=== PATIENT | male | born 1960 | race Caucasian/White ===

== ENCOUNTER 2021-02-04 20:12 | Emergency (ER) | payer BC ==
[~2021-02-04] VITALS: Ht 170.2 cm; Wt 68.2 kg
[2021-02-04 20:12] VITALS: TEMP 97.2
[2021-02-04 21:21] LABS: HEMATOCRIT 40.2 % (42.0-52.0); HEMOGLOBIN 14.3 g/dl (13.5-18.0); MEAN CELL VOLUME 94 fl (80.0-100.0); MEAN CORPUSCULAR HEMOGLOBIN 33 pg (27.0-31.0); MEAN CORPUSCULAR HGB CONC 36 g/dl (33.0-37.0); PLATELET COUNT 612 K/mm3 (130-400); REDCELL DISTRIBUTION WIDTH-CV 14.2 % (11.5-14.5)
[2021-02-04 21:44] LABS: ALANINE AMINOTRANSFERASE 33 U/L (4-49); ALBUMIN 4.1 gm/dL (3.5-5.0); ALKALINE PHOSPHATASE 92 U/L (50-136); ANION GAP 7 mmol/L (7-16); AST,SGOT 42 U/L (15-37); BILIRUBIN,TOTAL 1.2 mg/dL (0.0-1.0); BLOOD UREA NITROGEN 21 mg/dL (9-20); CARBON DIOXIDE 30 mmol/L (22-30); CHLORIDE 101 mmol/L (98-107); CREATININE, serum 0.95 (0.66-1.25); GLUCOSE 106 mg/dL (74-106); POTASSIUM 3.1 mmol/L (3.4-5.0); SODIUM 139 mmol/L (137-145); TOTAL PROTEIN 7.4 gm/dL (6.4-8.2)
[2021-02-04 21:48] LABS: BAND 1 % (0-10); EOSINOPHIL 2 % (0-4); LYMPHOCYTE 5 % (20.0-51.0); NEUTROPHILS 86 % (42.0-75.2)
[2021-02-04 21:49] LABS: PLATELET ESTIMATE INCREASED (NORMAL)
[2021-02-04 21:51] LABS: SCHISTOCYTES 1+; SPHEROCYTE 1+
[2021-02-04 21:56] LABS: TROPONIN-I < 0.012 ng/mL (0.000-0.035)
[2021-02-05 01:40] VITALS: BP 120/68; PULSE 61
[2021-02-05 08:03] LABS: PATHOLOGY DIFF REVIEW OK
== END 2021-02-05 01:45 | disposition home or self-care (01) ==
LOC: COL.ER 20:12
PROVIDERS: Emergency Medicine
DX: R94.31 Abnormal electrocardiogram [ECG] [EKG] (principal); R20.0 Anesthesia of skin; R20.2 Paresthesia of skin; Z88.1 Allergy status to other antibiotic agents
CPT/HCPCS: J7030; Q9967